=== PATIENT | male | born 2000 | race Caucasian/White ===

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

== ENCOUNTER 2021-11-26 21:37 | Emergency (ER) | payer BC, MEDICAID, OTHER ==
[2021-11-26 21:47] VITALS: BP 143/86
--- NOTE | 2021-11-26 22:19 | ED Physician Documentation ---
PD HPI UPPER EXT INJURY - Stated complaint Stated Complaint: R HAND INJURY,DOG BITE - Chief complaint Chief Complaint: Laceration - History obtained from History obtained from: Patient - History of Present Illness Location: Right, Hand Where injury occurred: A house / apartment Timing - onset: Today (this evening) Timing - details: Abrupt onset Pain level now: 3 Associated symptoms: No: Weakness, Numbness, Tingling Recently seen: Not recently seen - Additonal information Additional information: this evening patient was at a friend's house when friend's dog bit patient's right hand. Patient is right hand dominant. He is UTD on tetanus. Unknown if the dog is UTD on immunizations. Review of Systems Skin: reports: Bite / sting Musculoskeletal: reports: Extremity pain Neurologic: denies: Focal weakness, Numbness PD PAST MEDICAL HISTORY - Past Medical History Past Medical History: No - Past Surgical History Past Surgical History: No - Present Medications Home Medications: Ambulatory Orders Medication Instructions Recorded Confirmed Amox/Clav 875/125 [Augmentin 1 tablet PO Q12H 10 Days #20 tablet 11/26/21 875/125 Tab] - Allergies Allergies/Adverse Reactions: Allergies Allergy/AdvReac Type Severity Reaction Status Date / Time No Known Drug Allergies Allergy Verified 11/26/21 21:47 - Social History Does the pt smoke?: No Smoking Status: Never smoker Does the pt drink ETOH?: No Does the pt have substance abuse?: No - Immunizations Immunizations are current?: No PD ED PE NORMAL - Vitals Vital signs reviewed: Yes - General General: Alert and oriented X 3, No acute distress, Well developed/nourished - Neuro Neuro: No sensory deficit, Other (LTS intact tips of right pointer and middle fingers with FROM flex/extension. Full strength flexion of these two digits including isolation of MCP, PIP, DIP joints. Will not allow testing of extension of pointer finger due to pain) PD ED PE EXPANDED - Extremities HOLA UE/Hands Visual: 1 - laceration (puncture) 2 - abrasion (wide but superficial abrasion) 3 - laceration (puncture) 4 - laceration (puncture) 5 - laceration (1 cm length with underlying soft tissue exposed) Results - Vitals Vitals: Vital Signs - 24 hr 11/26/21 21:44 Temperature 36.3 C L Heart Rate 87 Respiratory 16 Rate Blood Pressure 143/86 H O2 Saturation 97 Oxygen O2 Source Room air Procedures - Laceration (location) Hand right Ventral Length in cm: 1 Wound type: Linear, Into subcut fat, Clean Neurovascular status: Sensory intact, Motor intact, Vascular intact Tendon involvement: Tendon intact Anesthesia: Lidocaine 1% Wound preparation: Chlorhexadine, Irrigated copiously NS, Wound explored, To the base Skin layer closure: Nylon, Interrupted, Size #-0 - enter number (4-0), Sutures - enter # (3) Other: Patient tolerated well, No complications, Neurovascular intact, Dressing applied, Tetanus UTD PD MEDICAL DECISION MAKING - ED course Complexity details: reviewed results, re-evaluated patient, considered differential, d/w patient ED course: presents with dog bite to right hand. Dog belongs to friend; I advised patient that friend needs to inform patient if the dog develops illness or behavioral change within the next ten days. Patient has mostly puncture wounds and superficial linear laceration, but there is a 1cm long but deep laceration ventral aspect at base of right middle finger. we discussed risks of infection and option of delayed closure. I recommended closure at this time and patient agrees. I copiously irrigated the wound with sterile water before placing three simple interrupted nylon sutures. He is given augmentin and provided rx for same (he says he does not have a pharmacy and cant decide which he would use at this time). I emphasized the importance of taking the augmentin as prescribed, and return precautions discussed with emphasis plac ed on watching for signs/symptoms of infection of the injury, particularly the sutured wound Departure - Departure Disposition: 01 Home, Self Care Clinical Impression: Dog bite of hand Qualifiers: Encounter type: initial encounter Laterality: right Qualified Code(s): S61.451A - Open bite of right hand, initial encounter Condition: Good Instructions: ED Bite Dog, ED Laceration Hand Follow-Up: Jayesh Clement DO [Provider Admit Priv/Credential] - Prescriptions: Amox/Clav 875/125 [Augmentin 875/125 Tab] 1 tablet PO Q12H 10 Days #20 tablet Comments: Please fill the prescription for the antibiotic (augmentin) in the morning and take it as per label instructions. Follow up with your primary care provider within 7-8 days for suture removal. If you do not have a doctor, contact your insurance provider to request options for one. If you do not have insurance, you can use the office information provided elsewhere on these discharge instructions for follow up Discharge Date/Time: 11/26/21 23:13
[2021-11-26] MEDS ORDERED: LIDOCAINE 1% 10 ML MDV SUBQ STA (22:34)
[2021-11-26] MEDS ORDERED: AMOX/CLAV 875 MG/125 MG TABLET PO STA (22:35)
[2021-11-26] MEDS ORDERED: lidocaine 1% 20 ML MDV SUBQ STA (22:37)
== END 2021-11-26 23:13 | disposition home or self-care (01) ==
LOC: ED 21:37
DX: S61.451A Open bite of right hand, initial encounter (principal); W54.0XXA Bitten by dog, initial encounter
CPT/HCPCS: 12001; 99282; A9270